=== PATIENT | female | born 1950 | race African-American/Black ===

== ENCOUNTER 2017-01-07 20:20 | Emergency (ER) | payer MEDICARE, MEDICAID ==
[~2017-01-07] VITALS: Ht 162.6 cm; Wt 64.0 kg
[2017-01-07 21:23] VITALS: BP 140/88
[2017-01-07] MEDS: ACETAMINOPHEN WITH CODEINE 300/30MG TABLET PO ONE (21:23)
== END 2017-01-08 01:36 | disposition home or self-care (01) ==
LOC: ER 20:22
DX: S93.401A Sprain of unspecified ligament of right ankle, initial encounter (principal); F17.200 Nicotine dependence, unspecified, uncomplicated; I10 Essential (primary) hypertension; Z86.73 Personal history of transient ischemic attack (TIA), and cerebral infarction without residual deficits; W19.XXXA Unspecified fall, initial encounter; Y93.89 Activity, other specified; Y92.89 Other specified places as the place of occurrence of the external cause; Y99.8 Other external cause status
CPT/HCPCS: 29515; 73610; 99284